=== PATIENT | male | born 1985 | race Caucasian/White ===

== ENCOUNTER 2019-10-05 19:32 | Emergency (ER) | payer BC ==
[2019-10-05 20:33] LABS: Absolute Lymphocytes (CBC) 1.8 K/uL (0.7-4.9); Basophils % 0.7 % (0-1.3); Hematocrit 53.7 % (39.6-49.0); Lymphocytes % 25.8 % (15.3-44.8); MPV 10.1 fL (7.6-11.3); RBC Red Blood Cell Count 6.42 M/uL (4.33-5.43)
[2019-10-05] MEDS ORDERED: NA CHLORIDE 0.9% 1,000 ML ONE (20:38)
[2019-10-05] MEDS ORDERED: ASPIRIN 81 MG CHEWABLE TABLET ONE (20:38)
--- NOTE | 2019-10-05 20:41 | RAD REPORT ---
EXAM DESCRIPTION: Fabrice Single View10/05/2019 8:27 pm CLINICAL HISTORY: Chest pain COMPARISON: none FINDINGS: The lungs appear clear of acute infiltrate. The heart is normal size IMPRESSION: No acute abnormalities displayed
[2019-10-05 20:46] LABS: Protime INR 1.07
[2019-10-05 20:59] LABS: ALT/SGPT 26 U/L (12-78); AST/SGOT 11 U/L (15-37); Albumin 4.1 g/dL (3.4-5.0); Alkaline Phosphatase 67 U/L (45-117); BUN Blood Urea Nitrogen 14 mg/dL (7-18); Bicarbonate 28 mmol/L (21-32); Bilirubin Direct 0.1 mg/dL (0-0.2); Bilirubin Total 0.5 mg/dL (0.2-1.0); Glucose Level 82 mg/dL (74-106); Magnesium 2.1 mg/dL (1.8-2.4); Potassium 4.3 mmol/L (3.5-5.1); Protein, Total 7.6 g/dL (6.4-8.2); Sodium Level 140 mmol/L (136-145); Troponin (Emerg Dept Use Only) < 0.02 ng/mL (0.0-0.045)
[2019-10-05 21:44] LABS: NT PRO-BNP < 5 pg/mL (<125)
--- NOTE | 2019-10-05 22:15 | ER ---
Nurse's Notes [facility] Name: Carmelo Parmar Age: 34 yrs Sex: Male : 1985 Arrival Date: 10/05/2019 Time: 19:34 Bed 5 Private MD: Diagnosis: Other chest pain;Shortness of breath Presentation: 10/04 19:41 Chief complaint: Patient states: Upper chest pain for 2 months, more frequent and ll1 severe tonight so he came to get checked. + SOB. No cough or fever. Coronavirus screen: Proceed with normal triage. Patient denies a cough. Patient reports shortness of breath or difficulty breathing. Patient denies measured and/or subjective temperature greater than 100.4F prior to today's visit. Patient denies travel on a cruise ship or to a country the [facility] currently lists as an affected area. Patient denies contact with known and/or suspected case of COVID-19. Ebola Screen: Patient denies travel to an Ebola-affected area in the 21 days before illness onset. Initial Sepsis Screen: Does the patient meet any 2 criteria? No. Patient's initial sepsis screen is negative. Does the patient have a suspected source of infection? No. Patient's initial sepsis screen is negative. Risk Assessment: Do you want to hurt yourself or someone else? Patient reports no desire to harm self or others. Onset of symptoms was August 04, 2021. 19:41 Method Of Arrival: Ambulatory ll1 19:41 Acuity: SAMEER 3 ll1 Historical: - Allergies: 19:43 No Known Drug Allergies; ll1 - PMHx: 19:43 borderline high cholesterol; ll1 - PSHx: 19:43 None; ll1 - Immunization history:: Adult Immunizations up to date, Flu vaccine is not up to date. - Social history:: Patient uses alcohol, occasionally. only on a social basis. Patient/guardian denies using street drugs, tobacco products. Screenin:44 Abuse screen: Denies threats or abuse. Nutritional screening: No deficits noted. jb4 Tuberculosis screening: No symptoms or risk factors identified. Fall Risk None identified. Assessment: 19:44 General: Appears in no apparent distress. comfortable, Behavior is calm, cooperative, jb4 appropriate for age. Pain: Complains of pain in mid-sternal area Pain radiates to left arm Pain currently is 3 out of 10 on a pain scale. Quality of pain is described as pressure, Pain began 2 hours ago. Is continuous. Neuro: Level of Consciousness is awake, alert, obeys commands, Oriented to person, place, time, situation. Cardiovascular: Patient's skin is warm and dry. Rhythm is sinus rhythm w/ PVCs. Respiratory: Reports Pt reports having shortness of breath while in the lobby, is currently denying any shortness of breath. Airway is patent Respiratory effort is even, unlabored, Respiratory pattern is regular, symmetrical, Breath sounds are clear bilaterally. GI: No signs and/or symptoms were reported involving the gastrointestinal system. : No signs and/or symptoms were reported regarding the genitourinary system. EENT: No signs and/or symptoms were reported regarding the EENT system. Derm: Skin is intact, Skin is pink, warm \T\ dry. Musculoskeletal: Circulation, motion, and sensation intact. Range of motion: intact in all extremities. 20:46 Reassessment: Patient appears in no apparent distress at this time. Patient and/or jb4 family updated on plan of care and expected duration. Pain level reassessed. Patient is alert, oriented x 3, equal unlabored respirations, skin warm/dry/pink. 21:38 Reassessment: Patient appears in no apparent distress at this time. Patient and/or jb4 family updated on plan of care and expected duration. Pain level reassessed. Patient is alert, oriented x 3, equal unlabored respirations, skin warm/dry/pink. 23:00 Reassessment: Patient appears in no apparent distress at this time. Patient and/or jb4 family updated on plan of care and expected duration. Pain level reassessed. Patient is alert, oriented x 3, equal unlabored respirations, skin warm/dry/pink. Pt verbalized understanding of d/c and follow up instructions. Denies questions or concerns. Ambulated out of ED with steady gait. Vital Signs: 19:41 BP 153 / 99; Pulse 73; Resp 17; Temp 98.2; Pulse Ox 99% ; Weight 93.44 kg; Height 6 ft. ll1 0 in. (182.88 cm); Pain 3/10; 20:30 BP 138 / 86; Pulse 63; Resp 17; Pulse Ox 99% on R/A; Pain 3/10; jb4 21:30 BP 152 / 74; Pulse 73; Resp 18; Pulse Ox 100% on R/A; jb4 22:15 BP 143 / 70; Pulse 70; Resp 16; Pulse Ox 99% on R/A; jb4 19:41 Body Mass Index 27.94 (93.44 kg, 182.88 cm) ll1 ED Course: 19:34 Patient arrived in ED. cl3 19:43 Triage completed. ll1 19:44 Arm band placed on Patient placed in an exam room, on a stretcher. EKG completed in ll1 triage. Results shown to MD. EKG completed in triage. Results shown to MD. 19:45 Gilles Knox PA is PHCP. cp 19:46 Keyur Tinoco MD is Attending Physician. cp 19:50 Patient has correct armband on for positive identification. Bed in low position. Call jb4 light in reach. Side rails up X 1. teletypesetter monitor on. Pulse ox on. NIBP on. 19:50 EKG done, by ED staff, reviewed by Gilles BENTLEY. jb4 20:14 Inserted saline lock: 20 gauge in right antecubital area, using aseptic technique. jb4 Blood collected. 20:14 Initial lab(s) drawn, by ED staff, sent to lab. jb4 20:24 Zay Lanier, RN is Primary Nurse. jb4 20:27 XRAY Chest (1 view) In Process Unspecified. EDMS 22:45 No provider procedures requiring assistance completed. IV discontinued, intact, jb4 bleeding controlled, No redness/swelling at site. Pressure dressing applied. Administered Medications: 20:38 Drug: Aspirin Chewable Tablet 324 mg Route: PO; jb4 21:00 Follow up: Response: No adverse reaction jb4 20:38 Drug: NS 0.9% 1000 ml Route: IV; Rate: 1 bolus; Site: right antecubital; jb4 22:00 Follow up: Response: No adverse reaction; IV Status: Completed infusion; IV Intake: jb4 1000ml Intake: 22:00 IV: 1000ml; Total: 1000ml. jb4 Outcome: 22:14 Discharge ordered by . cp 22:45 Discharged to home ambulatory. jb4 22:45 Condition: stable 22:45 Discharge instructions given to patient, Instructed on discharge instructions, follow up and referral plans. medication usage, Demonstrated understanding of instructions, follow-up care, medications, Prescriptions given X 1. 23:16 Patient left the ED. jb4 Signatures: Dispatcher [employer] EDMS Gilles Knox PA PA cp Bryson, James RN RN jb4 Esvin Nixon cl3 Bella Nixon RN RN ll1 Corrections: (The following items were deleted from the chart) 20:47 20:00 Initial lab(s) drawn, by ED staff, sent to lab. EKG done, by ED staff, reviewed jb4 by Gilles BENTLEY jbMarcus
--- NOTE | 2019-10-05 22:15 | EDPHYS ---
Physician Documentation [facility] Name: Carmelo Parmar Age: 34 yrs Sex: Male : 1985 Arrival Date: 10/05/2019 Time: 19:34 Bed 5 Private MD: ED Physician Keyur Tinoco HPI: 10/04 19:55 This 34 yrs old Male presents to ER via Ambulatory with complaints of cp Shortness Of Breath, Chest Pain. 19:55 The patient has shortness of breath at rest. Onset: The symptoms/episode began/occurred cp 2 month(s) ago. Duration: The symptoms are intermittent. Associated signs and symptoms: Pertinent positives: chest pain, Pertinent negatives: non-productive cough, productive cough, fever, vomiting. Severity of symptoms: in the emergency department the symptoms are unchanged despite home interventions. Historical: - Allergies: 19:43 No Known Drug Allergies; ll1 - PMHx: 19:43 borderline high cholesterol; ll1 - PSHx: 19:43 None; ll1 - Immunization history:: Adult Immunizations up to date, Flu vaccine is not up to date. - Social history:: Patient uses alcohol, occasionally. only on a social basis. Patient/guardian denies using street drugs, tobacco products. ROS: 20:00 Cardiovascular: Positive for chest pain, Negative for edema, palpitations. cp 20:00 Constitutional: Negative for fever, poor PO intake. cp 20:00 Respiratory: Positive for shortness of breath, at rest. Negative for cough, wheezing. 20:00 Eyes: Negative for injury, pain, redness, and discharge. cp 20:00 ENT: Negative for drainage from ear(s), ear pain, sore throat, difficulty swallowing, cp difficulty handling secretions. 20:00 Abdomen/GI: Negative for abdominal pain, nausea, vomiting, and diarrhea. 20:00 Back: Negative for pain at rest, pain with movement, radiated pain. 20:00 Neuro: Negative for altered mental status, headache, syncope, near syncope, weakness. 20:00 All other systems are negative. Exam: 20:05 ECG was reviewed by the Attending Physician. cp 20:08 Constitutional: The patient appears in no acute distress, alert, awake, comfortable, cp non-diaphoretic, non-toxic, well developed, well nourished. 20:08 Head/Face: Normocephalic, atraumatic. Eyes: Pupils equal round and reactive to light, cp extra-ocular motions intact. Lids and lashes normal. Conjunctiva and sclera are non-icteric and not injected. Cornea within normal limits. Periorbital areas with no swelling, redness, or edema. ENT: Nares patent. No nasal discharge, no septal abnormalities noted. Tympanic membranes are normal and external auditory canals are clear. Oropharynx with no redness, swelling, or masses, exudates, or evidence of obstruction, uvula midline. Mucous membranes moist. Chest/axilla: Normal chest wall appearance and motion. Nontender with no deformity. No lesions are appreciated. Cardiovascular: Regular rate and rhythm with a normal S1 and S2. No gallops, murmurs, or rubs. Normal PMI, no JVD. No pulse deficits. Respiratory: Lungs have equal breath sounds bilaterally, clear to auscultation and percussion. No rales, rhonchi or wheezes noted. No increased work of breathing, no retractions or nasal flaring. Abdomen/GI: Soft, non-tender, with normal bowel sounds. No distension or tympany. No guarding or rebound. No evidence of tenderness throughout. Skin: Warm, dry with normal turgor. Normal color with no rashes, no lesions, and no evidence of cellulitis. 20:08 Neuro: Orientation: to person, place \T\ time. Mentation: is normal, Cerebellar function: is grossly normal, Motor: moves all fours, strength is normal, Sensation: is normal, Gait: is steady, at a normal pace, without difficulty. Vital Signs: 19:41 BP 153 / 99; Pulse 73; Resp 17; Temp 98.2; Pulse Ox 99% ; Weight 93.44 kg; Height 6 ft. ll1 0 in. (182.88 cm); Pain 3/10; 20:30 BP 138 / 86; Pulse 63; Resp 17; Pulse Ox 99% on R/A; Pain 3/10; jb4 21:30 BP 152 / 74; Pulse 73; Resp 18; Pulse Ox 100% on R/A; jb4 22:15 BP 143 / 70; Pulse 70; Resp 16; Pulse Ox 99% on R/A; jb4 19:41 Body Mass Index 27.94 (93.44 kg, 182.88 cm) ll1 MDM: 19:51 Patient medically screened. cp 21:00 Differential diagnosis: Anxiety Reaction asthma, Bronchitis Myocardial Infarction cp pneumonia, Pneumothorax Pulmonary Embolism. 22:12 Data reviewed: vital signs, nurses notes, lab test result(s), EKG, radiologic studies, cp plain films, and as a result, I will discharge patient. 22:13 Test interpretation: by ED physician or midlevel provider: ECG. cp 22:13 Counseling: I had a detailed discussion with the patient and/or guardian regarding: the cp historical points, exam findings, and any diagnostic results supporting the discharge/admit diagnosis, lab results, radiology results, the need for outpatient follow up, a family practitioner, to return to the emergency department if symptoms worsen or persist or if there are any questions or concerns that arise at home. Special discussion: Based on the patient's history, exam, and Dx evaluation, there is no indication for emergent intervention or inpatient Tx. It is understood by the patient/guardian that if the Sx's persist or worsen they need to return immediately for re-evaluation. 10/04 20:04 Order name: Basic Metabolic Panel; Complete Time: 21:46 cp 10/04 21:46 Interpretation: Normal except: GFR 74. cp 10/04 20:04 Order name: CBC with Diff; Complete Time: 21:46 cp 05/ 21:46 Interpretation: Normal except: RBC 6.42; HCT 53.7; MCV 83.7; PLT 124; RDW 16.6. cp 10/04 20:04 Order name: LFT's; Complete Time: 21:46 cp 10/04 20:04 Order name: Magnesium; Complete Time: 21:46 cp 10/04 20:04 Order name: NT PRO-BNP; Complete Time: 21:46 cp 10/04 20:04 Order name: PT-INR; Complete Time: 21:46 cp 10/04 19:51 Order name: EKG; Complete Time: 19:52 cp / 19:51 Order name: EKG - Nurse/Tech; Complete Time: 20:23 cp 10/04 20:04 Order name: Troponin (emerg Dept Use Only); Complete Time: 21:46 cp 10/04 20:04 Order name: XRAY Chest (1 view); Complete Time: 21:46 cp 10/04 20:04 Order name: Cardiac monitoring; Complete Time: 20:23 cp 10/04 20:04 Order name: D-Dimer; Complete Time: 21:46 cp 10/04 20:04 Order name: IV Saline Lock; Complete Time: 20:23 cp 10/04 20:04 Order name: Labs collected and sent; Complete Time: 20:23 cp 10/04 20:04 Order name: O2 Per Protocol; Complete Time: 20:23 cp 10/04 20:04 Order name: O2 Sat Monitoring; Complete Time: 20:23 cp EC:05 Rate is 84 beats/min. Rhythm is regular. ME interval is normal. QRS interval is normal. cp QT interval is normal. T waves are Inverted in lead aVR. Interpreted by me. Reviewed by me. Administered Medications: 20:38 Drug: Aspirin Chewable Tablet 324 mg Route: PO; 4 21:00 Follow up: Response: No adverse reaction jb 20:38 Drug: NS 0.9% 1000 ml Route: IV; Rate: 1 bolus; Site: right antecubital; 4 22:00 Follow up: Response: No adverse reaction; IV Status: Completed infusion; IV Intake: jb4 1000ml Disposition: 10/05 03:24 Co-signature as Attending Physician, Keyur Tinoco MD. [email or web address] Disposition: 10/05/19 22:14 Discharged to Home. Impression: Other chest pain, Shortness of breath. - Condition is Stable. - Discharge Instructions: Nonspecific Chest Pain, Shortness of Breath, Aspirin and Your Heart. - Prescriptions for Albuterol Sulfate 90 mcg/actuation - inhale 1-2 puff by INHALATION route every 4-6 hours; 1 Inhaler. - Medication Reconciliation Form, Thank You Letter, Antibiotic Education, Prescription Opioid Use form. - Follow up: Private Physician; When: 2 - 3 days; Reason: Recheck today's complaints. - Problem is new. - Symptoms have improved. Signatures: Dispatcher [employer] EDMS Gilles Knox PA PA cp Bryson, James, RN RN jb4 Bella Nixon RN RN ll1 Keyur Tinoco MD MD [email or web address] Corrections: (The following items were deleted from the chart) 10/04 23:16 22:14 10/05/2019 22:14 Discharged to Home. Impression: Other chest pain; Shortness of jb4 breath. Condition is Stable. Forms are Medication Reconciliation Form, Thank You Letter, Antibiotic Education, Prescription Opioid Use. Follow up: Private Physician; When: 2 - 3 days; Reason: Recheck today's complaints. Problem is new. Symptoms have improved. cp
[2019-10-05 23:27] VITALS: TEMP 98.2
[2019-10-05 23:31] VITALS: BP 143/70; O2SAT 99
--- NOTE | 2019-10-06 11:23 | EKG ---
Test Date: 2019-10-05 Test Time: 19:57:45 Pulp Press Tender: VEL MEASUREMENT RESULTS: Intervals: Rate: 71 [place]: 156 QRSD: 92 QT: 362 QTc: 393 [place]: P: 55 [place]: 156 QRS: -50 T: 54 INTERPRETIVE STATEMENTS: Sinus rhythm with premature supraventricular complexes with frequent premature ventricular complexes Left axis deviation Abnormal ECG Compared to ECG 01/13/2015 19:00:53 Atrial premature complex(es) now present Ventricular premature complex(es) now present Left-axis deviation now present Sinus tachycardia no longer present Electronically Signed On 10-06-19 11:21:36 CDT by Delvis Ayala
--- NOTE | 2019-10-06 11:23 | EKG ---
Test Date: 2019-10-05 Test Time: 19:58:53 Hair Spinning Machine Operator: VEL MEASUREMENT RESULTS: Intervals: Rate: 84 OR: 164 QRSD: 92 QT: 350 QTc: 413 [place]: P: 51 OR: 164 QRS: -55 T: 56 INTERPRETIVE STATEMENTS: Normal sinus rhythm Left axis deviation Pulmonary disease pattern Abnormal ECG Compared to ECG 10/05/2019 19:57:45 Atrial premature complex(es) no longer present Ventricular premature complex(es) no longer present Electronically Signed On 10-06-19 11:21:33 CDT by Delvis Ayala
== END 2019-10-05 23:16 | disposition home or self-care (01) ==
LOC: ER 19:32
DX: R07.89 Other chest pain (principal)
CPT/HCPCS: 93005 ×2; 85025; 80048; 36415; 83735; 85610; 85379; 80076; 84484; 83880; 71045; 96360; 99285; J7030

== ENCOUNTER 2022-11-22 20:05 | Inpatient (IN) | payer BC ==
[2022-11-22] MEDS ORDERED: NA CHLORIDE 0.9% 1,000 ML ONE (20:36)
[2022-11-22] MEDS ORDERED: ASPIRIN 81 MG CHEWABLE TABLET ONE (20:36)
[2022-11-22] MEDS ORDERED: FAMOTIDINE 20 MG/2 ML VIAL IV ONE (20:37)
[2022-11-22 20:53] LABS: Absolute Lymphocytes (CBC) 1.4 K/uL (0.7-4.9); Hematocrit 48.2 % (39.6-49.0); Lymphocytes % 12.3 % (15.3-44.8); MPV 9.7 fL (7.6-11.3); RBC Red Blood Cell Count 5.95 M/uL (4.33-5.43)
[2022-11-22 20:57] LABS: Albumin 4.2 g/dL (3.4-5.0); Bilirubin Direct 0.1 mg/dL (0-0.2); Bilirubin Indirect, Calculated 0.3 mg/dL (0.2-0.8); Bilirubin Total 0.4 mg/dL (0.2-1.0); Potassium 3.7 mEq/L (3.5-5.1); Protein, Total 7.4 g/dL (6.4-8.2); Troponin High Sensitivity 5.6 pg/mL (<58.9)
[2022-11-22 21:00] LABS: Protime INR 0.83
[2022-11-22] MEDS ORDERED: ATORVASTATIN 20 MG TAB PO SCH (21:00)
--- NOTE | 2022-11-22 21:30 | RAD REPORT ---
EXAM DESCRIPTION: Fabrice Single View11/22/2022 8:36 pm CLINICAL HISTORY: Chest pain COMPARISON: 2019 FINDINGS: The lungs appear clear of acute infiltrate. The heart is normal size IMPRESSION: No acute abnormalities displayed
--- NOTE | 2022-11-22 21:35 | RAD REPORT ---
EXAM DESCRIPTION: CT - Chest For Pe Angio - 11/22/2022 9:23 pm CLINICAL HISTORY: Chest pain COMPARISON: None. TECHNIQUE: Dynamically enhanced axial 3 mm thick images of the chest were obtained during administra tion of 77 mL Isovue 370 IV contrast. Coronal and oblique reconstruction images were generated and re viewed. Exam utilizes a protocol for optimal evaluation of pulmonary arterial tree. Maximum intensity projections 3D imaging was utilized All CT scans are performed using dose optimization technique as appropriate and may include automated exposure control or mA/KV adjustment according to patient size. FINDINGS: A pulmonary embolus is not seen. A thoracic aortic aneurysm is not noted. 12 millimeter pretracheal lymph node A pleural effusion is not seen. A pericardial effusion is not seen. A lung consolidation is not present. IMPRESSION: Negative for a pulmonary embolism. 12 millimeter pretracheal lymph node is nonspecific. Followup CT chest 3 months is recommended to ass ess stability
--- NOTE | 2022-11-22 22:15 | ER ---
Nurse's Notes [facility] Name: Carmelo Parmar Age: 37 yrs Sex: Male : 1985 Arrival Date: 11/22/2022 Time: 20:05 Bed 14 Private MD: Diagnosis: Chest pain, unspecified;Chest pain on breathing;Dyspnea Presentation: 11/22 20:15 Chief complaint: Patient states: I have franklin having chest pains on and off for about two kd3 weeks now. It does not make me nauseous and i have not been around any sick contacts but it hurts to breath in and out. Yesterday it started to radiate to my neck and jaw. My chest pain is a 6 out of 10 and i have no cardiac history but i do get testosterone treatments. Coronavirus screen: Vaccine status: Patient reports being unvaccinated. Ebola Screen: No symptoms or risks identified at this time. Initial Sepsis Screen: Does the patient meet any 2 criteria? No. Patient's initial sepsis screen is negative. Does the patient have a suspected source of infection? No. Patient's initial sepsis screen is negative. Risk Assessment: Do you want to hurt yourself or someone else? Patient reports no desire to harm self or others. Onset of symptoms was November 22, 2022. 20:15 Method Of Arrival: Ambulatory kd3 20:15 Acuity: SAMEER 3 kd3 Triage Assessment: 20:18 General: Appears uncomfortable, Behavior is calm, cooperative. Pain: Complains of pain kd3 in chest Pain radiates to right mandible and neck. Cardiovascular: Patient's skin is warm and dry. Historical: - Allergies: 20:17 No Known Allergies; kd3 - PMHx: 20:17 Borderline High cholesterol; kd3 - Immunization history:: Adult Immunizations up to date. - Social history:: Smoking status: Patient/guardian denies using tobacco, but has a distant history of tobacco abuse. - Family history:: not pertinent. Screenin:35 [facility] ED Fall Risk Assessment (Adult) History of falling in the last 3 months, mb9 including since admission No falls in past 3 months (0 pts) Confusion or Disorientation No (0 pts) Intoxicated or Sedated No (0 pts) Impaired Gait No (0 pts) Mobility Assist Device Used No (0 pt) Altered Elimination No (0 pt) Score/Fall Risk Level 0 - 2 = Low Risk Oriented to surroundings, Maintained a safe environment, Educated pt \T\ family on fall prevention, incl call for assistance when getting out of bed. Abuse screen: Denies threats or abuse. Nutritional screening: No deficits noted. Tuberculosis screening: No symptoms or risk factors identified. Assessment: 20:33 General: Appears in no apparent distress. Behavior is calm, cooperative. Pain: mb9 Complains of pain in chest Pain radiates to left neck and jaw Pain currently is 6 out of 10 on a pain scale. Quality of pain is described as throbbing, Pain began 2 weeks ago Is intermittent. Neuro: [place] Toro Agitation-Sedation Scale (RASS): 0 - Alert and Calm Level of Consciousness is awake, alert, obeys commands, Oriented to person, place, time, situation, Appropriate for age. Cardiovascular: Heart tones S1 S2 present Patient's skin is warm and dry. Respiratory: Reports shortness of breath at rest on exertion Airway is patent Respiratory effort is even, unlabored, Respiratory pattern is regular, symmetrical. GI: Abdomen is flat, non-distended, Bowel sounds present X 4 quads. Abd is soft and non tender X 4 quads. Patient currently denies nausea. Derm: Skin is pink, warm \T\ dry. Musculoskeletal: Range of motion: intact in all extremities. 21:30 Reassessment: No changes from previously documented assessment. Patient and/or family mb9 updated on plan of care and expected duration. Pain level reassessed. Patient is alert, oriented x 3, equal unlabored respirations, skin warm/dry/pink. 22:45 Reassessment: No changes from previously documented assessment. Patient and/or family mb9 updated on plan of care and expected duration. Pain level reassessed. Patient is alert, oriented x 3, equal unlabored respirations, skin warm/dry/pink. 23:02 Reassessment: attempted to call report to admitting nurse. mb9 Vital Signs: 20:15 Weight 97.52 kg; Height 6 ft. 0 in. ; Pain 6/10; kd3 20:21 BP 153 / 104; Pulse 76; Resp 16; Temp 97.6(TE); Pulse Ox 98% on R/A; kd3 20:34 BP 146 / 99; Pulse 69; Resp 18; Pulse Ox 98% on R/A; mb9 21:10 BP 129 / 80; Pulse 63; Resp 16; Pulse Ox 99% on R/A; mb9 22:59 BP 130 / 72; Pulse 64; Resp 15; Pulse Ox 100% on R/A; mb9 20:15 Body Mass Index 29.16 (97.52 kg, 182.88 cm) kd3 20:15 Pain Scale: Adult kd3 ED Course: 20:08 Patient arrived in ED. ja2 20:12 Jamia Portillo RN is Primary Nurse. mb9 20:15 Gilles Romano MD is Attending Physician. samina 20:17 Triage completed. kd3 20:18 Arm band placed on right wrist. kd3 20:26 Placed in gown. Bed in low position. Call light in reach. Side rails up X 1. Client mb9 placed on continuous cardiac and pulse oximetry monitoring. NIBP monitoring applied. hospital education coordinator on. 20:26 Basic Metabolic Panel Sent. mb9 20:26 CBC with Diff Sent. mb9 20:26 LFT's Sent. mb9 20:26 Magnesium Sent. mb9 20:26 NT PRO-BNP Sent. mb9 20:26 PT-INR Sent. mb9 20:26 Troponin HS Sent. mb9 20:26 EKG done, by ED staff, reviewed by Gilles Romano MD. Inserted saline lock: 18 gauge in mb9 right forearm, using aseptic technique. 20:35 No provider procedures requiring assistance completed. Patient maintains SpO2 mb9 saturation greater than 95% on room air. 20:37 XRAY Chest (1 view) In Process Unspecified. EDMS 21:25 CT Chest For PE Angio In Process Unspecified. EDMS 22:14 Jaime Fischer is Hospitalizing Provider. samina 23:00 Patient admitted, IV remains in place. mb9 Administered Medications: 20:28 Drug: Aspirin PO Chewable Tablet 324 mg Route: PO; mb9 23:32 Follow up: Response: No adverse reaction mb9 20:30 Drug: NS 0.9% IV 1000 ml Route: IV; Rate: 1 bolus; Site: right forearm; mb9 23:32 Follow up: Response: No adverse reaction; IV Status: Completed infusion mb9 20:30 Drug: Famotidine IVP 20 mg Route: IVP; Site: right forearm; mb9 23:32 Follow up: Response: No adverse reaction mb9 22:13 Drug: Ketorolac IVP 30 mg Route: IVP; Site: right forearm; rm9 23:32 Follow up: Response: No adverse reaction mb9 Medication: 20:35 VIS not applicable for this client. rm9 Outcome: 22:14 Decision to Hospitalize by Provider. samina 23:31 Admitted to Tele room 430, with chart, Report called to EPHRAIM Dailey 23:31 Condition: stable 23:31 Instructed on the need for admit. 23:35 Patient left the ED. brandan Signatures: Dispatcher [employer] EDGilles Londono MD MD cha Alexander, Jessica ja2 Doucette, Kyli, RN RN kd3 Jamia Portillo RN RN mb9 Corrections: (The following items were deleted from the chart) 20:18 20:15 Chief complaint: Patient states: I have franklin having chest pains on and off for kd3 about two weeks now. It does not make me nauseous and i have not been around any sick contacts but it hurts to breath in and out. Yesterday it started to radiate to my neck and jaw. My chest pain is a 6 out of 10 and i have no cardiac history kd3 20:46 20:26 D-DIMER+COAG.LAB.BRZ drawn and sent. rm9 EDWY
--- NOTE | 2022-11-22 22:15 | EDPHYS ---
Physician Documentation [facility] Name: Carmelo Parmar Age: 37 yrs Sex: Male : 1985 Arrival Date: 11/22/2022 Time: 20:05 Bed 14 Private MD: SHERRI Physician Gilles Romano HPI: 11/22 22:06 This 37 yrs old Male presents to ER via Ambulatory with complaints of Chest Pain, samina Shortness Of Breath, Headache, Jaw Pain, Neck Pain, >24Hrs Old. 22:06 This 37 yrs old Male presents to ER via Ambulatory with complaints of Chest samina Pain, Shortness Of Breath, Headache, Jaw Pain, Neck Pain, >24Hrs Old. 22:06 The patient or guardian reports chest pain that is located primarily in the substernal samina area, anterior chest wall, bilaterally. The pain radiates to Associated signs and symptoms: The patient has no apparent associated signs or symptoms, Pertinent positives: lightheadedness, shortness of breath. The chest pain is described as a pressure, sharp. Duration: The patient or guardian reports a single episode, that is still ongoing, but improving. Modifying factors: The symptoms are alleviated by nothing. application of supplemental oxygen, the symptoms are aggravated by breathing. Severity of pain: At its worst the pain was moderate in the emergency department the pain is unchanged. The patient has not experienced similar symptoms in the past. Historical: - Allergies: 20:17 No Known Allergies; kd3 - PMHx: 20:17 Borderline High cholesterol; kd3 - Immunization history:: Adult Immunizations up to date. - Social history:: Smoking status: Patient/guardian denies using tobacco, but has a distant history of tobacco abuse. - Family history:: not pertinent. ROS: 22:06 Constitutional: Negative for fever, chills, and weight loss, Eyes: Negative for injury, samina pain, redness, and discharge, ENT: Negative for injury, pain, and discharge, Neck: Negative for injury, pain, and swelling, Abdomen/GI: Negative for abdominal pain, nausea, vomiting, diarrhea, and constipation, Back: Negative for injury and pain, : Negative for injury, bleeding, discharge, and swelling, MS/Extremity: Negative for injury and deformity, Skin: Negative for injury, rash, and discoloration, Neuro: Negative for headache, weakness, numbness, tingling, and seizure. 22:06 Neck: Positive for 22:06 Cardiovascular: Positive for chest pain, of the chest. 22:06 Respiratory: Positive for pleurisy, of the chest. Exam: 22:06 Constitutional: This is a well developed, well nourished patient who is awake, alert, samina and in no acute distress. Head/Face: Normocephalic, atraumatic. Eyes: Pupils equal round and reactive to light, extra-ocular motions intact. Lids and lashes normal. Conjunctiva and sclera are non-icteric and not injected. Cornea within normal limits. Periorbital areas with no swelling, redness, or edema. ENT: Nares patent. No nasal discharge, no septal abnormalities noted. Tympanic membranes are normal and external auditory canals are clear. Oropharynx with no redness, swelling, or masses, exudates, or evidence of obstruction, uvula midline. Mucous membranes moist. Neck: Trachea midline, no thyromegaly or masses palpated, and no cervical lymphadenopathy. Supple, full range of motion without nuchal rigidity, or vertebral point tenderness. No Meningismus. Chest/axilla: Normal chest wall appearance and motion. Nontender with no deformity. No lesions are appreciated. Cardiovascular: Regular rate and rhythm with a normal S1 and S2. No gallops, murmurs, or rubs. Normal PMI, no JVD. No pulse deficits. Respiratory: Lungs have equal breath sounds bilaterally, clear to auscultation and percussion. No rales, rhonchi or wheezes noted. No increased work of breathing, no retractions or nasal flaring. Abdomen/GI: Soft, non-tender, with normal bowel sounds. No distension or tympany. No guarding or rebound. No evidence of tenderness throughout. Back: No spinal tenderness. No costovertebral tenderness. Full range of motion. Male : Normal genitalia with no discharge or lesions. Skin: Warm, dry with normal turgor. Normal color with no rashes, no lesions, and no evidence of cellulitis. MS/ Extremity: Pulses equal, no cyanosis. Neurovascular intact. Full, normal range of motion. Neuro: Awake and alert, GCS 15, oriented to person, place, time, and situation. Cranial nerves II-XII grossly intact. Motor strength 5/5 in all extremities. Sensory grossly intact. Cerebellar exam normal. Normal gait. Psych: Awake, alert, with orientation to person, place and time. Behavior, mood, and affect are within normal limits. 22:06 Cardiovascular: Exam negative for acute changes, arrhythmia, bradycardia, edema, gallop, JVD, murmur, pulse deficit, rub, tachycardia. 22:06 ECG was reviewed by the Attending Physician. Vital Signs: 20:15 Weight 97.52 kg; Height 6 ft. 0 in. ; Pain 6/10; kd3 20:21 BP 153 / 104; Pulse 76; Resp 16; Temp 97.6(TE); Pulse Ox 98% on R/A; kd3 20:34 BP 146 / 99; Pulse 69; Resp 18; Pulse Ox 98% on R/A; mb9 21:10 BP 129 / 80; Pulse 63; Resp 16; Pulse Ox 99% on R/A; mb9 22:59 BP 130 / 72; Pulse 64; Resp 15; Pulse Ox 100% on R/A; mb9 20:15 Body Mass Index 29.16 (97.52 kg, 182.88 cm) kd3 20:15 Pain Scale: Adult kd3 MDM: 20:15 Patient medically screened. samina 22:11 Differential diagnosis: abnormal EKG, acute myocardial infarction, acute pericarditis, samina anxiety, coronary artery disease chest wall pain, Cholelithiasis costochondritis, esophagitis, gastritis, gastroesophageal reflux disease (GERD), hiatal hernia, Sharon-Thompson syndrome, pancreatitis, peptic ulcer disease, pericarditis, pleurisy, pneumonia, pulmonary embolus, stable angina, thoracic aortic disection, unstable angina. HEART Score: History: Moderately Suspicious (1), ECG: Normal (0), Age: < or = 45 years (0), Risk Factors: 1 or 2 risk factors (1), [Hypercholesterolemia] [+ Family HX] Troponin: < or = 1 x Normal Limit (0). RAUL Risk Score: TOTAL SCORE = 0. Data reviewed: vital signs, nurses notes, lab test result(s), EKG, radiologic studies, CT scan, plain films. Consideration of Admission/Observation Escalation of care including admission/observation considered. Management of patient was discussed with the following: Hospitalist: hospitalist. I considered the following discharge prescriptions or medication management in the emergency department Medications were administered in the Emergency Department. See MAR. Test considered but Not performed: Ultrasound no echo. Care significantly affected by the following chronic conditions: high cholesterol. Counseling: I had a detailed discussion with the patient and/or guardian regarding: the historical points, exam findings, and any diagnostic results supporting the discharge/admit diagnosis, lab results, radiology results, the need for further work-up and treatment in the hospital. 11/22 20:17 Order name: Basic Metabolic Panel; Complete Time: 21:20 [facility] 11/22 20:17 Order name: CBC with Diff; Complete Time: 21:20 [facility] 11/22 20:17 Order name: LFT's; Complete Time: 21:20 [facility] 11/22 20:17 Order name: Magnesium; Complete Time: 21:20 [facility] 11/22 20:17 Order name: NT PRO-BNP; Complete Time: 21:20 [facility] 11/22 20:17 Order name: PT-INR; Complete Time: 21:20 [facility] 11/22 20:17 Order name: Troponin HS; Complete Time: 21:20 [facility] 11/22 20:17 Order name: Lipase; Complete Time: 21:20 [facility] 11/22 20:17 Order name: Urinalysis w/ reflexes [facility] 11/22 20:17 Order name: UDS [facility] 11/22 22:54 Order name: Urinalysis w/ reflexes [facility] 11/22 22:54 Order name: Basic Metabolic Panel [facility] 11/22 22:54 Order name: Basic Metabolic Panel [facility] 11/22 22:54 Order name: Basic Metabolic Panel EDMN 11/22 22:54 Order name: Basic Metabolic Panel EDMN 11/22 22:54 Order name: CBC with Automated Diff EDMS 11/22 22:54 Order name: CBC with Automated Diff EDMS 11/22 22:54 Order name: CBC with Automated Diff EDMS 11/22 22:54 Order name: CBC with Automated Diff EDMS 11/22 22:54 Order name: Lipid Profile EDMS 11/22 22:54 Order name: Lipid Profile EDMS 11/22 22:54 Order name: Magnesium EDMS 11/22 22:54 Order name: Magnesium EDMS 11/22 22:54 Order name: Magnesium EDMS 11/22 22:54 Order name: Magnesium EDMS 11/22 22:54 Order name: Troponin High Sensitivity EDMS 11/22 22:54 Order name: Troponin High Sensitivity EDMS 11/22 22:54 Order name: Troponin High Sensitivity [facility] 11/22 22:54 Order name: Troponin High Sensitivity [facility] 11/22 20:17 Order name: XRAY Chest (1 view); Complete Time: 22:05 [facility] 11/22 20:43 Order name: CT Chest For PE Angio; Complete Time: 22:05 [facility] 11/22 20:17 Order name: EKG; Complete Time: 20:18 [facility] 11/22 22:54 Order name: CONS Physician Consult [facility] 11/22 22:54 Order name: Heart Healthy [facility] 11/22 22:54 Order name: NPO [facility] 11/22 20:17 Order name: Cardiac monitoring; Complete Time: 20:26 [facility] 11/22 20:17 Order name: EKG - Nurse/Tech; Complete Time: 20:26 [facility] 11/22 20:17 Order name: IV Saline Lock; Complete Time: 20:26 [facility] 11/22 20:17 Order name: Labs collected and sent; Complete Time: 20:26 [facility] 11/22 20:17 Order name: O2 Per Protocol; Complete Time: 20: [facility] 11/22 20:17 Order name: O2 Sat Monitoring; Complete Time: 20:26 [facility] EC:06 Rate is 75 beats/min. Rhythm is regular. QRS [place] is Normal. [place] interval is normal. QT samina interval is normal. No Q waves. T waves are Normal. No ST changes noted. Interpreted by me. Reviewed by me. Administered Medications: 20:28 Drug: Aspirin PO Chewable Tablet 324 mg Route: PO; mb9 23:32 Follow up: Response: No adverse reaction mb9 20:30 Drug: NS 0.9% IV 1000 ml Route: IV; Rate: 1 bolus; Site: right forearm; mb9 23:32 Follow up: Response: No adverse reaction; IV Status: Completed infusion mb9 20:30 Drug: Famotidine IVP 20 mg Route: IVP; Site: right forearm; mb9 23:32 Follow up: Response: No adverse reaction mb9 22:13 Drug: Ketorolac IVP 30 mg Route: IVP; Site: right forearm; mb9 23:32 Follow up: Response: No adverse reaction mb9 Disposition Summary: 11/22/22 22:14 Hospitalization Ordered Hospitalization Status: Observation samina Provider: Jaime Fischer cha Location: Telemetry/MedSurg (observation) samina Condition: Fair samina Problem: new samina Symptoms: have improved samina Bed/Room Type: Standard samina Room Assignment: 430(11/22/22 22:59) mw Diagnosis - Chest pain, unspecified samina - Chest pain on breathing samina - Dyspnea samina Forms: - Medication Reconciliation Form samina - SBAR form samina Signatures: Dispatcher [employer] EDMS Vidya Swanson RN RN mw Anderson, Corey, MD MD cha Doucette, Kyli, RN RN kd3 Jamia Portillo RN RN mb9 Corrections: (The following items were deleted from the chart) 20:46 20:18 D-DIMER+COAG.LAB.BRZ ordered. EDMS EDMS 22:59 22:14 samina mw
[2022-11-22] MEDS ORDERED: KETOROLAC 30 MG/ML INJ ONE (22:18)
[2022-11-22 22:30] LABS: Barbiturates NEGATIVE (NEGATIVE); Benzodiazepines NEGATIVE (NEGATIVE); Cocaine NEGATIVE (NEGATIVE); METHAMPHETAM NEGATIVE (NEGATIVE); Methadone NEGATIVE (NEGATIVE); Opiates NEGATIVE (NEGATIVE); Phencyclidine NEGATIVE (NEGATIVE); THC Cannibis NEGATIVE (NEGATIVE)
[2022-11-22] MEDS ORDERED: ZOLPIDEM TARTRATE 5 MG TABLET PO PRN (22:46)
[2022-11-22] MEDS ORDERED: ONDANSETRON 4 MG/2 ML VIAL IV PRN (22:46)
[2022-11-22] MEDS ORDERED: ACETAMINOPHEN 500 MG TAB PO PRN (22:46)
[2022-11-22 22:52] LABS: Specific Gravity > 1.030 (1.005-1.030); Urine Bacteria None Seen /HPF (<20); Urine Bilirubin NEGATIVE (Negative); Urine Blood Negative (Negative); Urine Clarity Clear (Clear); Urine Color Light-Yellow (Yellow); Urine Glucose NEGATIVE (Negative); Urine Mucus Slight /HPF (None Seen); Urine Protein TRACE (Negative); Urine RBC None Seen /HPF (None Seen); Urine Urobilinogen Normal (Normal); Urine pH 5.5 (5.0-7.0)
[2022-11-22] MEDS ORDERED: NITROGLYCERIN 0.4 MG/TAB SL PRN (22:52)
[2022-11-22] MEDS ORDERED: TRAMADOL HCL 50 MG TAB PO PRN (22:53)
--- NOTE | 2022-11-22 23:19 | P.HP ---
Certification for Inpatient Patient admitted to: Inpatient () With expected LOS: <2 Midnights Patient will require the following post-hospital care: None Practitioner: I am a practitioner with admitting privileges, knowledge of patient current condition, hospital course, and medical plan of care. Services: Services provided to patient in accordance with Admission requirements found in Title 42 Section 412.3 of the Code of Federal Regulations Patient History Date of Service: 11/23/22 Reason for admission: Chest pain History of Present Illness: 37 yrs old Male with no significant past medical history presents to the emergency room with complaints of Chest Pain. He reports chest pain is substernal Bilateral, associated with Shortness Of Breath. He reports chest pain started two weeks ago, chest pain is worse with inspiration and worse while laying flat. He reports use of Testosterone for last 3 years. He denies cough, fever, chills, nausea, vomiting, diaphoresis. edema, he denies recent strenuous activity, no reported recent trauma. No reported history of asthma, or respiratory illness. Allergies No Known Drug Allergies Allergy (Unverified 02/04/15 18:39) Unknown Home medications list reviewed: Yes - Past Medical/Surgical History Past Medical History: Patient denies medical history Past Surgical History: Reviewed- Non-Contributory - Social History Smoking Status: Never smoker Alcohol use: No Review of Systems General: As per HPI Physical Examination - Physical Exam General: Alert, In no apparent distress, Oriented x3 HEENT: Atraumatic, Normocephalic, PERRLA Neck: Supple, 2+ carotid pulse no bruit Respiratory: Clear to auscultation bilaterally, Other (Pleurtic pain, shallow respirations) Cardiovascular: Normal pulses, Regular rate/rhythm Gastrointestinal: Normal bowel sounds Neurological: Normal speech, Cranial nerves 3-12 intact - Studies Laboratory Data (last 24 hrs) 11/22/22 20:24: PT 10.0, INR 0.83 11/22/22 20:24: WBC 11.20 H, Hgb 15.7, Hct 48.2, Plt Count 151 L 11/22/22 20:24: Sodium 137, Potassium 3.7, BUN 17, Creatinine 1.09, Glucose 96, Magnesium 2.0, Total Bilirubin 0.4, AST 13 L, ALT 24, Alkaline Phosphatase 63, Lipase 27 Assessment and Plan - Plan Assessment/Plan Chest pain rule out TN Pleurisy Dyspnea leukocytosis DDX Asthma exacerabation, URI Assessment/Plan admit to med surg, tele Chest pain rule out TN-Card consult for chest pain, trend trop, prn analgesic, nitro, lipid panel, ASA, antilipid Pleurisy CT of Chest Ruled out PE, D dimer Dyspnea 02 2l keep sats >92% Albuterol, Solumedrol, budesone, Pulmon funct testing leukocytosis-Azithromycin Full code DVT Diet NPO after MN Discharge Plan: Home Plan to discharge in: 48 Hours - Advance Directives Does patient have a Living Will: No Does patient have a Durable POA for Healthcare: No - Code Status/Comfort Care Code Status Assessed: Yes Code Status: Full Code Physician Review: Patient Assessed, Agree with Above Assessment and Plan Critical Care: Yes
[2022-11-22 23:46] VITALS: BMI 29.2
[2022-11-22] MEDS: BUDESONIDE 0.5 MG/2 ML NEB NEB SCH (23:46)
[2022-11-22] MEDS ORDERED: AZITHROMYCIN IV 500 MG in NA CHLORIDE 0.9% 250 ML IVPB ONE (23:46)
[2022-11-22] MEDS ORDERED: METHYLPREDNISOLONE 125 MG INJ IV ONE (23:47)
[2022-11-23] MEDS ORDERED: BUDESONIDE 0.5 MG/2 ML NEB ONE (00:14)
[2022-11-23] MEDS: ALBUTEROL 2.5 MG/3 ML NEB SOL NEB SCH ×4 (00:25→08:15)
[2022-11-23 04:08] VITALS: O2SAT 98
[2022-11-23 06:29] LABS: Absolute Lymphocytes (CBC) 0.6 K/uL (0.7-4.9); MCV 81.5 fL (80-100); MPV 9.5 fL (7.6-11.3); RBC Red Blood Cell Count 5.39 M/uL (4.33-5.43)
[2022-11-23 06:52] LABS: Magnesium 2.1 mg/dL (1.6-2.4); Phosphorus 1.6 mg/dL (2.5-4.9); Potassium 3.4 mEq/L (3.5-5.1)
[2022-11-23] MEDS ORDERED: POTASS/SODIUM PHOSPHATE 1 PKT POWD.PACK PO SCH (08:00)
[2022-11-23] MEDS: BUDESONIDE 0.5 MG/2 ML NEB NEB SCH (08:15)
[2022-11-23] MEDS ORDERED: POTASSIUM PHOS IN 0.9 % NACL 15 MMOL/250 ML BAG IV ONE (08:36)
[2022-11-23 08:41] LABS: Blood Morphology Comment NOT SEEN (NOT SEEN); Platelet Estimate ADEQ; White Blood Cell Scan NEUTROPHILIA (OK)
[2022-11-23] MEDS ORDERED: ENOXAPARIN 40 MG/0.4 ML SQ SCH (09:00)
[2022-11-23] MEDS ORDERED: ASPIRIN 81 MG CHEWABLE TABLET PO SCH (09:00)
[2022-11-23] MEDS ORDERED: POTASSIUM CL SA 10 MEQ TAB PO ONE ×2 (09:00)
[2022-11-23 10:47] VITALS: BP 128/80; TEMP 97
--- NOTE | 2022-11-23 10:51 | P.DS ---
Admission Date: 11/22/22 Discharge Date: 11/23/22 Disposition: ROUTINE DISCHARGE Discharge Condition: FAIR Reason for Admission: Chest pain - Problems (1) Chest pain Status: Acute Brief History of Present Illness: 37 yrs old Male with no significant past medical history presents to the emergency room with complaints of Chest Pain. He reports chest pain is substernal Bilateral, associated with Shortness Of Breath. He reports chest pain started two weeks ago, chest pain is worse with inspiration and worse while laying flat. He reports use of Testosterone for last 3 years. He denies cough, fever, chills, nausea, vomiting, diaphoresis. edema, he denies recent strenuous activity, no reported recent trauma. No reported history of asthma, or respiratory illness. Initial troponin negative. EKG showed no ischemic changes. Chest x-ray showed no acute changes. Patient was hospitalized for further evaluation and management. Hospital Course: Troponin trended negative. Patient chest pain was atypical. He reported no chest pain at rest, chest pain triggered by deep breathing. Chest x-ray is clear, CTA thorax negative for pulmonary embolism. ACS ruled out. Vitals are stable. Patient deemed stable for discharge. He will follow-up with Dr. Buckner as outpatient for further evaluation. Vital Signs/Physical Exam: Temp Pulse Resp BP Pulse Ox 97 F 78 24 H 128/80 98 11/23/22 08:00 11/23/22 08:00 11/23/22 08:00 11/23/22 08:00 11/23/22 08:00 General: Alert, In no apparent distress, Oriented x3 HEENT: Mucous membr. moist/pink Neck: Supple, JVD not distended Respiratory: Clear to auscultation bilaterally, Normal air movement Cardiovascular: No edema, Regular rate/rhythm, Normal S1 S2 Gastrointestinal: Soft and benign, Non-distended, No tenderness Musculoskeletal: No swelling Integumentary: No rashes, No cyanosis Neurological: Normal speech, Normal strength at 5/5 x4 extr, Cranial nerves 3-12 intact Laboratory Data at Discharge: WBC 8.70 thou/uL (4.3-10.9) 11/23/22 06:12 Hgb 14.5 g/dL (13.6-17.9) 11/23/22 06:12 Hct 44.0 % (39.6-49.0) 11/23/22 06:12 Plt Count 145 thou/uL (152-406) L 11/23/22 06:12 PT 10.0 SECONDS (9.2-12.8) 11/22/22 20:24 INR 0.83 11/22/22 20:24 Sodium 138 mEq/L (136-145) 11/23/22 06:12 Potassium 3.4 mEq/L (3.5-5.1) L 11/23/22 06:12 BUN 17 mg/dL (7-18) 11/23/22 06:12 Creatinine 1.18 mg/dL (0.70-1.30) 11/23/22 06:12 Glucose 125 mg/dL (74-106) H 11/23/22 06:12 Phosphorus 1.6 mg/dL (2.5-4.9) L 11/23/22 06:12 Magnesium 2.1 mg/dL (1.6-2.4) 11/23/22 06:12 Total Bilirubin 0.4 mg/dL (0.2-1.0) 11/22/22 20:24 AST 13 U/L (15-37) L 11/22/22 20:24 ALT 24 U/L (16-61) 11/22/22 20:24 Alkaline Phosphatase 63 U/L (45-117) 11/22/22 20:24 Triglycerides 140 mg/dL (<150) 11/23/22 06:12 Cholesterol 180 mg/dL (<200) 11/23/22 06:12 HDL Cholesterol 35 mg/dL (40-60) L 11/23/22 06:12 Cholesterol/HDL Ratio 5.14 11/23/22 06:12 Lipase 27 U/L (13-75) 11/22/22 20:24 Home Medications: Aspirin Chewable [Aspirin Chewable*] 81 mg PO DAILY #30 tab.chew 11/23/22 New Medications: Aspirin Chewable [Aspirin Chewable*] 81 mg PO DAILY #30 tab.chew Diet: AHA Activity: Ad eliud Followup: Jett Santacruz MD [Primary Care Provider] - 1-2 Weeks Sagar Buckner MD [ACTIVE - CAN ADMIT] - 1-2 Weeks Time spent managing pt's care (in minutes): 28
--- NOTE | 2022-11-23 19:31 | EKG ---
Test Date: 2022-11-22 Test Time: 20:19:50 Assistant Controller: MB MEASUREMENT RESULTS: Intervals: Rate: 75 NM: 162 QRSD: 92 QT: 354 QTc: 395 Mckinney: P: 47 NM: 162 QRS: -30 T: 40 INTERPRETIVE STATEMENTS: Normal sinus rhythm Left axis deviation Abnormal ECG Compared to ECG 10/05/2019 19:58:53 No significant changes Electronically Signed On 11-23-22 19:28:53 CDT by Delvis Ayala
== END 2022-11-23 11:46 | disposition home or self-care (01) | DRG 313 ==
LOC: ER 20:05 → ERHOLD 22:47 → 4TH 23:33
PROVIDERS: ADMIT Internal Medicine; ATTEND Internal Medicine
DX: R07.89 Other chest pain (principal); D72.829 Elevated white blood cell count, unspecified; Z79.82 Long term (current) use of aspirin; Z87.891 Personal history of nicotine dependence
CPT/HCPCS: 36415; 71045; 71275; 80048; 80061; 80076; 80307; 81001; 82947; 83690; 83735; 83880; 84100; 84484; 85025; 85379; 85610; 93005; 94640; 94760; 96361; 96374; 96375; 99285; J1650; J2930; J7030; J7050; J7613; J7626; Q9967